=== PATIENT | female | born 1985 | race African-American/Black ===

== ENCOUNTER 2016-11-27 16:01 | Emergency (ER) | payer OTHER ==
[~2016-11-27 16:01] MED LIST: BACTRIM; [UNRECOGNIZED DRUG - OTHER]
== END 2016-11-27 18:30 | disposition left against medical advice (07) ==
LOC: ER 18:21
DX: Z53.21 Procedure and treatment not carried out due to patient leaving prior to being seen by health care provider (principal)

== ENCOUNTER 2019-12-20 22:15 | Emergency (ER) | payer OTHER ==
[~2019-12-20] VITALS: Ht 157.5 cm; Wt 63.0 kg
[2019-12-20 23:00] VITALS: BP 147/72
== END 2019-12-20 23:01 | disposition home or self-care (01) ==
LOC: ER 22:15
DX: R05 Cough (principal); G89.29 Other chronic pain; Z87.440 Personal history of urinary (tract) infections; F12.10 Cannabis abuse, uncomplicated; Z87.09 Personal history of other diseases of the respiratory system
CPT/HCPCS: 99281; 99283

== ENCOUNTER 2019-12-22 06:12 | Emergency (ER) | payer OTHER ==
[~2019-12-22] VITALS: Ht 162.6 cm; Wt 69.0 kg
[2019-12-22 09:53] LABS: BASOPHILS % 0.7 % (0.0-2.0); CHLORIDE 107 mEq/L (98-107); EOSINOPHILS % 0.9 % (0.0-5.0); HEMATOCRIT. 38.3 % (36.0-48.0); HEMOGLOBIN. 12.7 g/dL (12.0-16.0); LYMPHOCYTES % 24.2 % (20.0-50.0); MEAN CORPUSCULAR HEMOGLOBIN 29.8 pg (28.0-32.0); MEAN CORPUSCULAR VOLUME 90.2 fL (81.0-99.0); MEAN PLATELET VOLUME 8.1 fl (7.4-10.4); MONOCYTES % 5.7 % (2.0-8.0); NEUTROPHILS % 68.5 % (40.0-76.0); PLATELET 220 x1000/uL (130-400); RED BLOOD CELL COUNT 4.25 mill/uL (4.2-5.4)
[2019-12-22 10:50] VITALS: BP 94/58
== END 2019-12-22 10:55 | disposition home or self-care (01) ==
LOC: ER 06:12
DX: Z20.828 Contact with and (suspected) exposure to other viral communicable diseases (principal); K59.00 Constipation, unspecified; R05 Cough; R00.1 Bradycardia, unspecified; F12.10 Cannabis abuse, uncomplicated; Z98.890 Other specified postprocedural states; Z87.09 Personal history of other diseases of the respiratory system; Z87.891 Personal history of nicotine dependence
CPT/HCPCS: 36415; 71045; 80053; 83880; 84484; 85025; 93005; 99285

== ENCOUNTER 2020-10-24 23:01 | Emergency (ER) | payer OTHER ==
[~2020-10-24] VITALS: Ht 162.6 cm; Wt 68.0 kg
[2020-10-24 23:13] VITALS: BP 107/55
[2020-10-24] MEDS ORDERED: HYDROXYZINE 25MG TABLET PO ONE (23:30)
== END 2020-10-25 01:13 | disposition home or self-care (01) ==
LOC: ER 23:01
DX: F41.9 Anxiety disorder, unspecified (principal); F12.10 Cannabis abuse, uncomplicated
CPT/HCPCS: 99283

== ENCOUNTER → 2022-03-05 | Emergency (ER) | payer OTHER ==
[~2022-03-05] VITALS: Ht 162.6 cm; Wt 60.0 kg
[2022-03-05 02:39] VITALS: BP 114/46
== END | disposition left against medical advice (07) ==
LOC: ER 02:23
DX: Z53.21 Procedure and treatment not carried out due to patient leaving prior to being seen by health care provider (principal)

== ENCOUNTER 2023-03-31 09:04 | Emergency (ER) | payer OTHER ==
[~2023-03-31] VITALS: Ht 165.1 cm; Wt 59.0 kg
[2023-03-31 09:06] VITALS: O2SAT 98
[2023-03-31] MEDS ORDERED: NITROGLYCERIN 0.4MG TABLET SL SL PRN (09:45)
[2023-03-31] MEDS ORDERED: ASPIRIN 81MG TABLET PO ONE (09:45)
[2023-03-31 10:30] VITALS: BP 95/52; PULSE 60; RESP 16; TEMP 98.2
[2023-03-31 11:01] LABS: BASOPHILS % 0.4 % (0.0-2.0); EOSINOPHILS % 0.6 % (0.0-5.0); HEMATOCRIT. 33.4 % (36.0-48.0); HEMOGLOBIN. 11.2 g/dL (12.0-16.0); LYMPHOCYTES % 11.9 % (20.0-50.0); MEAN CORPUSCULAR HEMOGLOBIN 30.7 pg (28.0-32.0); MEAN CORPUSCULAR VOLUME 91.9 fL (81.0-99.0); MONOCYTES % 4.4 % (2.0-8.0); NEUTROPHILS % 82.7 % (40.0-76.0); PLATELET 153 x1000/uL (130-400); RED BLOOD CELL COUNT 3.63 mill/uL (4.2-5.4); RED CELL DISTRIBUTION WIDTH 13.2 % (11.6-14.6)
[2023-03-31 11:13] LABS: CHLORIDE 109 mEq/L (98-107); HCG SCREEN NEGATIVE
[2023-03-31 12:24] LABS: PARTIAL THROMBOPLASTIN TIME 23.6 sec (23.4-31.0)
[2023-03-31 14:29] LABS: PARTIAL THROMBOPLASTIN TIME 25.5 sec (23.4-31.0); PROTHROMBIN TIME 11.1 sec (9.6-11.0)
[2023-03-31] MEDS ORDERED: IOHEXOL-350 100 ML BOTTLE ONE (21:18)
== END 2023-03-31 15:20 | disposition home or self-care (01) ==
LOC: ER 09:06
DX: R07.89 Other chest pain (principal); D64.9 Anemia, unspecified; F41.9 Anxiety disorder, unspecified; F12.10 Cannabis abuse, uncomplicated
CPT/HCPCS: 80053; 84703; 83880; 83690; 85025; 85379; 85610; 85730; 84484; 36415; 71045; 71275; 93005; 99285; Q9967; Z7610